=== PATIENT | male | born 1965 | race Caucasian/White ===

== ENCOUNTER 2018-04-16 00:16 | Emergency (ER) | payer OTHER ==
[~2018-04-16] VITALS: Ht 167.6 cm; Wt 93.9 kg
[~2018-04-16 00:16] MED LIST: AMLODIPINE BESYL5 M1 PO; BACLOFEN10 MG PO; BAY PO; LOPRESSOR50 MG PO; METOPROLOL TART50 MG PO; PRI20 PO
[2018-04-16 00:26] VITALS: Ht 167.6 cm; Wt 93.9 kg
[2018-04-16 00:48] LABS: BASOPHIL % 0.6 % (0-2); PLATELET COUNT 184 x10^3mcL (130-400); RED CELL DISTRIBUTION WIDTH 13.1 % (11.5-14.5)
[2018-04-16 00:54] LABS: CALCIUM 8.4 mg/dL (8.5-10.1); CARBON DIOXIDE 27.4 mmol/L (21-32); CHLORIDE SERUM 106 mmol/L (98-107); CREATININE SERUM 1.2 mg/dL (0.7-1.3); GFR1 > 60 mL/min; GLUCOSE SERUM 139 mg/dL (74-106); POTASSIUM SERUM 3.6 mmol/L (3.5-5.1); SODIUM SERUM 142 mmol/L (136-145)
[2018-04-16 00:59] LABS: ALBUMIN 3.6 g/dL (3.4-5.0); ALKALINE PHOSPHATASE 106 U/L (46-116); ALT/SGPT 24 U/L (16-63); AST/SGOT 32 U/L (15-37); BILIRUBIN TOTAL 0.35 mg/dL (0.20-1.00); TOTAL PROTEIN, SERUM 7.6 g/dL (6.4-8.2)
[2018-04-16 03:27] VITALS: BP 107/67
== END 2018-04-16 03:27 | disposition home or self-care (01) ==
LOC: ED 00:16
PROVIDERS: Emergency Medicine
DX: R00.2 Palpitations (principal); R07.9 Chest pain, unspecified; K21.9 Gastro-esophageal reflux disease without esophagitis; I10 Essential (primary) hypertension
CPT/HCPCS: 36415; 83880; 85378; Q0092